=== PATIENT | female | born 1995 | race Two or more races ===

== ENCOUNTER 2024-07-28 20:24 | Observation (INO) | payer MEDICAID, SELFPAY ==
[2024-07-28] VITALS (8 sets, daily range): BP systolic 132; BP diastolic 81; PULSE 71–103; RESP 18–99; TEMP 36.8; O2SAT 98–99; BMI 31.3
--- NOTE | 2024-07-28 21:13 | XR_ITS ---
Examination: Complete OB ultrasound greater than 14 weeks Date and time of exam: July 28, 2024 2130 hours INDICATIONS: Onset of vaginal bleeding and pelvic cramping today Findings: Viable intrauterine single fetus with single amniotic sac presentation cephalic Cardiac motion 153 BPM Placenta posterior grade 3, no abruption Umbilical cord insertion 3 vessel seen Amniotic fluid index 11.1 cm spine maternal left Cervix 3.4 cm Ovaries obscured by bowel gas. Composite estimated gestational age based on BPD, head circumference, abdominal circumference, femur length is 36 weeks 3 days, estimated weight 2780 g. Survey of intracranial anatomy, spinal anatomy, abdominal anatomy, four-chamber heart performed with no abnormalities identified. Impression: Viable intrauterine gestation in cephalic presentation.
== END 2024-07-28 23:35 | disposition home or self-care (01) ==
PROVIDERS: Admitting Provider Obstetrics & Gynecology; Visit Provider Obstetrics & Gynecology
DX: O46.93 Antepartum hemorrhage, unspecified, third trimester (principal); Z3A.36 36 weeks gestation of pregnancy
CPT/HCPCS: 59025; 59899; 76805

== ENCOUNTER 2024-07-31 18:31 | Inpatient (IN) | payer MEDICAID, SELFPAY ==
[2024-07-31] VITALS (10 sets, daily range): BP systolic 124–145; BP diastolic 61–90; PULSE 67–79; RESP 18–100; TEMP 36.8–37.3; BMI 31.4
[2024-07-31 19:13] LABS: ROM Kit Lot # 57809118
[2024-07-31 19:14] LABS: ROM Swab Mixed By: AYNJ; Rupture of Fetal Membranes Positive (Negative); Swb Mxed in Solvent 1 min? Yes
--- NOTE | 2024-07-31 19:53 | ESHP_ITS ---
Documentation for date of: 07/31/24 OB Labor/Induct. HPI History of Present Illness Chief complaint: ctx and leaking : 1 Para: 0 Date of last menstrual period: 10/15/23 MOLLY: 08/14/24 Gestational Age (weeks): 38 Gestational Age (days): 0 Gestational age based on last menstrual period: 41 History of present illness: Patient presents with regular/painful ctx and possible leakage of clear fluid that started this evening around 1730. No vaginal bleeding. Feels normal movement. History of Present Dating criteria: based on 1st trimester US only Adequate Care: Yes Ultrasounds: normal 1st trimester US and normal mid trimester US Narrative: G1: current Complications: rubella non-immune, anemia in 3rd trimester started on iron (Hgb 10.2) Labs Labs: Negative: RPR, Hepatitis B, Rubella Titre, HIV, Chlamydia, Gonorrhea and Group Beta Strep Review of Systems Review of Systems Narrative Review of Systems: Review of Systems Systems Reviewed: All systems reviewed, normal except as documented Constitutional Constitutional: Denies body ache(s), Denies chills, Denies fever(s) and Denies headache(s) ENT Ears, Nose, Mouth, and Throat: Denies headache(s) and Denies vertigo Cardiovascular Cardiovascular: Denies chest pain, Denies palpitations, Denies dyspnea and Denies syncope Respiratory Respiratory: Denies cough, Denies dyspnea Gastrointestinal Gastrointestinal: Denies nausea and Denies vomiting Neurologic Neurologic: Denies convulsions, Denies headache(s), Denies other visual disturbances, Denies syncope and Denies vertigo Past Medical History Surgical History OTHER SURGICAL HX: denies Social History SOCIAL: No tobacco/ETOH/illicit drug use Past Medical History Comments PMH COMMENT: Benign PMhx Meds Home Medications and Allergies Home Medications ?Medication ?Instructions ?Recorded ?Confirmed ?Type No Known Home Medications 07/28/24 02/0 07/24 History Allergies Allergy/AdvReac Type Severity Reaction Status Date / Time No Known Allergies Allergy Verified 07/31/24 19:12 OB Exam Physical Exam Vital signs: Temp Pulse Resp BP 98.3 F 79 18 142/90 H 07/31/24 19:16 07/31/24 19:28 07/31/24 19:16 07/31/24 19:28 Narrative: General: well developed, well nourished, no acute distress, conversant Cardiac: normal heart rate Lungs: breathing without distress Abdomen: soft, gravid, non-tender, no rebound or guarding Extremities: no pain with palpation of calves RN reports on SCE there is some pooling of clear fluid. Detailed Labor and Delivery Exam Dilation (cm): 4 Effacement (%): 50 Cervix position: mid station: -2 Consistency: medium Presentation: Vertex Membranes: ruptured Amniotic fluid: clear monitor accelerations: 15x15 monitor decelerations: None termite renewal inspector variability: Moderate (11-25) Contraction frequency (min): q8-10min OB Results Labs 07/31/24 19:45 Labs: Amnisure: positive OB Assessment & Plan Assessment and Plan (1) Active labor at term: Status: Acute Assessment and plan: Ade is a 28yo with SIUP at 38+0wk presenting in active labor with SROM. Regular/painful contractions q8-10min, SCE: 4/50/-2. AROM, clear this evening (1730?) with +amnisure. Vitals wnl, benign exam. Reassuring assessment. EFW by Geo'iris: 7lb. PMhx/ complicated by: Rubella non-immune Anemia, Hgb 10.2 started on iron Plan: -Admit to L&D -Establish IV, routine labs -CEFM -Clear liquid diet -Sr. Payroll Manager/consent re: augmentation and . Discussed if no cervical change after 2 hours, will initiate IV pitocin and titrate per protocol- patient amenable. Answered all questions. -GBS status: negative -Anticipate -Safe to proceed (2) SROM (spontaneous rupture of membranes): Status: Acute (3) Rubella non-immune status, antepartum: Status: Acute (4) Anemia affecting : Status: Acute (4) Anemia affecting Qualifiers: Trimester: third trimester Qualified Code(s): O99.013 - Anemia complicating , third trimester
[2024-07-31] MEDS: RINGERS LACTATED 1000 ML 1,000 ML 100 ML IV (20:00)
[2024-07-31 20:07] LABS: Basophils % (Auto) 0 % (0-2.5); Eosinophils # (Auto) 0.1 Thou/mm3 (0.0-0.5); Eosinophils % (Auto) 1 % (0-10); Hematocrit 23.6 % (36.0-46.0); Immature Granulocytes % (Auto) 1 % (0-0); Immature Granulocytes Auto 0.09 Thou/mm3 (0.00-0.00); Lymphocytes # (Auto) 2.1 Thou/mm3 (1.0-4.8); Lymphocytes % (Auto) 18 % (10-50); Mean Corpuscular HGB Conc 32.2 g/dl (31.0-37.0); Mean Corpuscular Hemoglobin 25.7 pg (25.0-35.0); Mean Corpuscular Volume 80 fL (80-100); Monocytes # (Auto) 0.7 Thou/mm3 (0.0-0.8); Monocytes % (Auto) 6 % (0-12); Neutrophils # (Auto) 8.8 Thou/mm3 (1.8-7.7); Neutrophils % (Auto) 75 % (37-80); Nucleated Red Blood Cell # 0.04 Thou/mm3 (0.00-0.00); Nucleated Red Blood Cell % 0 /100 WBC (0); Platelet Count 189 Thou/mm3 (140-440); RDW Standard Deviation 45.5 fL (36.4-46.3); Red Blood Count 2.96 Miln/mm3 (4.00-5.20); White Blood Count 11.8 Thou/mm3 (3.6-11.0)
[2024-07-31 20:29] LABS: Hemoglobin 7.6 g/dL (12.0-16.0)
[2024-07-31 21:08] LABS: Syphilis Nonreactive (Nonreactive)
[2024-08-01] VITALS (212 sets, daily range): BP systolic 118–158; BP diastolic 60–89; PULSE 60–145; RESP 16–19; TEMP 36.6–37.3; O2SAT 92–100
[2024-08-01] MEDS: RINGERS LACTATED 1000 ML 1,000 ML 100 ML IV ×3 (07:18→14:47)
--- NOTE | 2024-08-01 09:18 | PD.LDPN ---
Documentation for date of: 08/01/24 OB Labor Progress Note Pelvic Exam Dilation (cm): 4 Effacement (%): 50 station: -2 Contractions Contraction frequency: q8-10min Assessment and Plan Comments: Intrapartum Note Patient breathing through ctx, rates them 10/10 but does not want an epidural. Last check approx 0230: 6/80/-2. Vitals wnl, afebrile Cat I FHRT Ctx q5min SCE: 6/80/-2. AROM of forebag, moderate amount of blood tinged fluid, well tolerated. Plan to re-check in 1 hour and if no cervical change, will start IV pitocin and titrate per protocol Discussed importance of progress in labor at this point since she had SROM last night at 1730 and we want to avoid developing chorioamnionitis. She voiced her understanding. CEFM She has been typed and crossed 2 units pRBCs since Hgb on admission is 7.6. Low threshold for blood transfusion with delivery if any excess bleeding occurs. Safe to proceed Maria Elena Dixon MD
[2024-08-01] MEDS: fentaNYL CIT INJ 50 mCg/ML AMP 2ML 100 MCG IV (11:22)
[2024-08-01] MEDS: METHYLERGONOVINE INJ 0.2 MG/ML VIAL IM (16:02)
[2024-08-01] MEDS: TRANEXAMIC ACID 1,000 MG IVPB 1,000 MG/100 ML BAG 200 MG IV (16:02)
[2024-08-01] MEDS: OXYTOCIN in NS 20 units 20 UNIT/1,000 ML BAG 125 UNIT IV (16:04)
[2024-08-01] MEDS: LIDOCAINE HCL 1% 20 ML VIAL INFL (16:10)
[2024-08-01] MEDS: CARBOPROST TROMETH INJ 250 MCG/ML VIAL IM (16:11)
[2024-08-01] MEDS: IBUPROFEN TAB 400 MG TABLET 800 MG PO (16:19)
[2024-08-01] MEDS: DIPHENOXYLATE/ATROP SULF 1 TAB PO (16:21)
[2024-08-01] MEDS: MISOPROSTOL 200 mCg TABLET 800 MCG PR (16:25)
[2024-08-01] MEDS: BENZO/LANO/ALOE (Dermoplast) 60 GM CAN 1 SPRAY TOP (16:35)
--- NOTE | 2024-08-01 16:37 | OBDSUM_ITS ---
Data (Heard) Data : 1 Para: 0 Term: 0 : 0 : 0 Delivery Data (Heard) Labor Data ROM Date: 07/31/24 ROM Time: 17:30 Rupture Type: SROM Amniotic Fluid: Clear Delivery Data Labor Onset Stage 1 Date: 07/31/24 Labor Onset Stage 1 Time: 17:00 Labor Onset Stage 2 Date: 08/01/24 Labor Onset Stage 2 Time: 15:40 Delivery Date: 08/01/24 Delivery Time: 15:57 Placenta Delivery Date: 08/01/24 Placenta Delivery Time: 16:03 Delivered by: Maria Elena Dixon Delivery nurse: Estela Amor Other staff at delivery: 2nd Nurse Other staff at delivery: Nursery Nurse Other staff at delivery: 2nd Nurse Other staff at delivery: Tabitha Gray Other staff at delivery: Susanna Torres Other staff at delivery: Media1 Delivery Method Delivery: Vaginal Delivery Type: Spontaneous Anesthesia Type Primary Anesthesia: Epidural Placenta Cord Sample: Cord Blood Obtained EBL Estimated blood loss (ml): 1,000 Additional Procedures Ade is a 28yo s/p at 38+1wk after presenting in active labor/with SROM, delivering at 1557 on 08/01/2024. Delivery complicated by hemorrhage that began prior to placenta being delivered. On presentation, SCE was 4cm. She progressed without pitocin augmentation (declined pitocin on multiple occasions despite counseling) to C/C/0 at which point she began pushing. She had received an epidural. With good maternal pushing efforts, infant's head delivered OA and restituted EARLE. Right anterior shoulder delivered easily followed by posterior shoulder (left compound hand present) and corpus. Infant had spontaneous cry and was vigorous. Apgars 9/9. placed on maternal abdomen where nose/mouth were suctioned and dried/stimulated. Patient began bleeding briskly, so cord was immediately clamped x2 and cut by FOB. Cord blood collected for typing. With fundal massage and cord traction, placenta did not deliver spontaneously initially, so manual extraction was performed, getting a good plane immediately so then placenta could be removed intact with 3 vessel centrally inserted cord, but there were trailing membranes. One sweep within uterus was performed and removed the small remaining fragment of membranes and there were no other POCs. I asked for TXA 1g IV to be given while I performed vigorous bimanual massage. IV pitocin was initiated per protocol and I asked that methergine 0.2mg IM be given since patient continued to have brisk bleeding with slow resolution of atony. I asked then for 0.25mg IM hemabate to be given and also cytotec 800mcg to be brought to the table to administer later NH. I also asked for 2u of pRBCs to be called for since patient's starting Hgb was 7.6. With all of these measures and continued bimanual massage, fundus firmed to u- 2cm and hemostasis was finally noted. Inspection of perineum and vagina revealed left labial lacerations and small right sidewall laceration which were repaired with 3-0 and 4-0 vicryl in routine fashion after anesthetizing with 1% lidocaine with total reapproximation and hemostasis achieved. Fundus was noted to remain firm. I placed the 800mcg cytotec NH. We measured the blood loss and it was 870ml + a saturated towel and several 4x4s, so total EBL is 1000ml. All counts correct x2. Mom and infant were doing well when I left the room. Maternal pulse 110's, improved from 140's during active management of hemorrhage. She remained normotensive. Patient was counseled on the rationale for blood transfusion, r/b/a, and is accepting of blood products. I asked for CBC to be drawn now and 6hr after the transfusion of 2u pRBCs is completed. Maria Elena Dixon MD Complications Complications: hemorrhage [place] Data (Heard) [place] Data Gender: Male Weight Grams: 3210 1 Minute Total: 9 5 Minute Total: 9
[2024-08-01] MEDS: ONDANSETRON INJ 2 MG/ML INJ 2 ML 4 MG (16:56)
[2024-08-01 16:59] LABS: Basophils # (Auto) 0.1 Thou/mm3 (0.0-0.2); Basophils % (Auto) 0 % (0-2.5); Eosinophils % (Auto) 0 % (0-10); Hematocrit 25.1 % (36.0-46.0); Immature Granulocytes % (Auto) 1 % (0-0); Immature Granulocytes Auto 0.19 Thou/mm3 (0.00-0.00); Lymphocytes # (Auto) 1.4 Thou/mm3 (1.0-4.8); Lymphocytes % (Auto) 8 % (10-50); Mean Corpuscular HGB Conc 31.9 g/dl (31.0-37.0); Mean Corpuscular Hemoglobin 25.6 pg (25.0-35.0); Mean Corpuscular Volume 80 fL (80-100); Monocytes # (Auto) 0.8 Thou/mm3 (0.0-0.8); Monocytes % (Auto) 5 % (0-12); Neutrophils # (Auto) 14.3 Thou/mm3 (1.8-7.7); Neutrophils % (Auto) 85 % (37-80); Nucleated Red Blood Cell # 0.03 Thou/mm3 (0.00-0.00); Nucleated Red Blood Cell % 0 /100 WBC (0); Platelet Count 199 Thou/mm3 (140-440); RDW Standard Deviation 46.5 fL (36.4-46.3); Red Blood Count 3.13 Miln/mm3 (4.00-5.20); White Blood Count 16.8 Thou/mm3 (3.6-11.0)
[2024-08-02 02:27] LABS: Basophils % (Auto) 0 % (0-2.5); Eosinophils % (Auto) 0 % (0-10); Immature Granulocytes % (Auto) 1 % (0-0); Immature Granulocytes Auto 0.13 Thou/mm3 (0.00-0.00); Lymphocytes # (Auto) 2.1 Thou/mm3 (1.0-4.8); Lymphocytes % (Auto) 15 % (10-50); Mean Corpuscular HGB Conc 32.9 g/dl (31.0-37.0); Mean Corpuscular Hemoglobin 26.1 pg (25.0-35.0); Mean Corpuscular Volume 79 fL (80-100); Monocytes # (Auto) 1.2 Thou/mm3 (0.0-0.8); Monocytes % (Auto) 8 % (0-12); Neutrophils # (Auto) 11.2 Thou/mm3 (1.8-7.7); Neutrophils % (Auto) 76 % (37-80); Nucleated Red Blood Cell # 0.07 Thou/mm3 (0.00-0.00); Nucleated Red Blood Cell % 1 /100 WBC (0); Platelet Count 185 Thou/mm3 (140-440); RDW Standard Deviation 44.6 fL (36.4-46.3); Red Blood Count 3.03 Miln/mm3 (4.00-5.20); White Blood Count 14.7 Thou/mm3 (3.6-11.0)
[2024-08-02 02:38] LABS: Hemoglobin 7.9 g/dL (12.0-16.0)
[2024-08-02 04:47] VITALS: BP 136/83; PULSE 68; RESP 18; TEMP 36.6; O2SAT 97
--- NOTE | 2024-08-02 05:38 | PC.NURSE ---
0525 Educated and demonstrated the use of breast pump, pumping intervals, pumping times, and storage. Pt stated understanding on use of breast pump and RN helped pt to began use breast pump.
[2024-08-02 08:00] VITALS: BP 132/79; PULSE 70; RESP 16; TEMP 36.9; O2SAT 97
--- NOTE | 2024-08-02 08:59 | ESDS_ITS ---
DS: Providers Provider Date of admission: 07/31/24 19:50 Primary care physician: Physician No Primary/Family Admitting Provider: Maria Elena Dixon MD Attending Provider on Admission: Maria Elena Dixon MD Consults: 08/01/24 16:34 Referral Routine Comment: Attending Provider on DC: Maria Elena Dixon MD Discharging Provider: Maria Elena Dixon MD DS: Diagnosis Discharge Diagnosis (1) Active labor at term: Status: Acute (2) SROM (spontaneous rupture of membranes): Status: Acute (3) Rubella non-immune status, antepartum: Status: Acute (4) Anemia affecting : Status: Acute (5) hemorrhage: Status: Acute (6) Blood transfusion during current hospitalisation: Status: Acute Problem List Completed Was Problem List Reviewed/Reconciled?: Yes Summary/Hosp Course Brief History: Ade is a 28yo s/p at 38+1wk after presenting in active labor/with SROM, delivering at 1557 on 08/01/2024. Delivery complicated by hemorrhage that began prior to placenta being delivered. Hemorrhage was effectively treated treated with multiple uterotonics (pitocin, hemabate, methergine, cytotec) and TXA and blood transfusion was immediately given since admission Hgb was 7.6. She tolerated blood transfusion well and post-transfusion Hgb this morning is 7.9. No tachycardia, no lightheadedness/dizziness with ambulation. She is meeting all milestones and feels ready for discharge home. She is tolerating regular diet no n/v, spontaneously voiding without issue. She has no chest pain or shortness of breath. No fevers or chills. Minimal, appropriate discomfort. Vitals normal, benign exam. Hemodynamically stable with no evidence of infection. I have ordered an iron infusion for her to be given prior to discharge, but she is not sure if she will accept and will consider further. Oral iron prescribed to pharmacy to continue twice daily. Status at Discharge Functional status at discharge: independent ambulation Overall status at discharge: patient is back to baseline Time Spent with Patient Time attestation: Total time spent providing and/or coordinating discharge services: Exam Vital Signs Temp Pulse Resp BP Pulse Ox O2 Del Method 98.5 F 70 16 132/79 H 97 Room Air 08/02/24 08:00 02/03/25 08:00 08/02/24 08:00 08/02/24 08:00 08/02/24 08:00 08/02/24 08:00 Narrative Exam General: well developed, well nourished, no acute distress, conversant Cardiac: normal heart rate Lungs: breathing without distress Abdomen: soft, post-gravid, non-tender, no rebound or guarding, Fundus firm at u-3cm. Extremities: no pain with palpation of calves, trace edema of BLE Discharge Plan Plan Patient Disposition: HOME (Self Care) Patient condition on transfer: Stable Prescriptions/Referrals Prescriptions/Med Rec: New ibuprofen 800 mg tablet 800 mg PO Q8H PRN (Reason: See Comments) 10 Days Qty: 30 0RF ferrous sulfate 325 mg (65 mg iron) tablet 325 mg PO BID 60 Days Qty: 120 0RF docusate sodium [Colace] 100 mg capsule 100 mg PO BID Qty: 90 0RF Referrals: No Primary/Family,Physician [Primary Care Provider] - Patient/Caregiver Discharge Instructions Discharge Activity: activity as tolerated and other Other Discharge Activity Instructions:: Vaginal rest and no heavy lifting greater than 10 pounds for 6 weeks. Eat an iron-rich diet and take oral iron twice daily. Other Discharge Diet Instructions: Regular diet Education Materials: After a Vaginal Print Language: Vietnamese Activity Restrictions/Additional Instructions: Follow up for visit in 4 weeks, call clinic for appointment Stand Alone Forms: Sabina Award Info., Patient Portal Info Letter Discharge Order Discharge Orders: Discharge (Routine); Ordered 08/02/24 Ordered By: Maria Elena Dixon Planned Discharge Date 08/02/24 (4) Anemia affecting Qualifiers: Trimester: third trimester Qualified Code(s): O99.013 - Anemia complicating , third trimester (5) hemorrhage Qualifiers: hemorrhage type: other immediate Qualified Code(s): O72.1 - Other immediate hemorrhage
[2024-08-02 09:30] LABS: Basophils # (Auto) 0.1 Thou/mm3 (0.0-0.2); Basophils % (Auto) 0 % (0-2.5); Eosinophils % (Auto) 0 % (0-10); Hematocrit 26.9 % (36.0-46.0); Immature Granulocytes % (Auto) 1 % (0-0); Lymphocytes # (Auto) 2.7 Thou/mm3 (1.0-4.8); Lymphocytes % (Auto) 18 % (10-50); Mean Corpuscular Volume 81 fL (80-100); Monocytes # (Auto) 0.9 Thou/mm3 (0.0-0.8); Monocytes % (Auto) 6 % (0-12); Neutrophils # (Auto) 11.4 Thou/mm3 (1.8-7.7); Neutrophils % (Auto) 75 % (37-80); Nucleated Red Blood Cell % 0 /100 WBC (0)
[2024-08-02 09:31] LABS: Immature Granulocytes Auto 0.11 Thou/mm3 (0.00-0.00); Mean Corpuscular Hemoglobin 25.7 pg (25.0-35.0); Nucleated Red Blood Cell # 0.06 Thou/mm3 (0.00-0.00); Platelet Count 165 Thou/mm3 (140-440); RDW Standard Deviation 44.6 fL (36.4-46.3); Red Blood Count 3.34 Miln/mm3 (4.00-5.20); White Blood Count 15.1 Thou/mm3 (3.6-11.0)
[2024-08-02 09:33] LABS: Hemoglobin 8.6 g/dL (12.0-16.0)
[2024-08-02 11:26] VITALS: BP 127/77; PULSE 75; RESP 18; TEMP 37.1; O2SAT 97
== END 2024-08-02 15:10 | disposition home or self-care (01) | DRG 560 ==
LOC: S4SX 08-01 16:13 → S4NX 08-01 21:11
PROVIDERS: Admitting Provider Obstetrics & Gynecology; Visit Provider Obstetrics & Gynecology
DX: O99.02 Anemia complicating childbirth (principal); Z3A.38 38 weeks gestation of pregnancy; Z37.0 Single live birth; Z78.9 Other specified health status; O70.0 First degree perineal laceration during delivery; O72.1 Other immediate postpartum hemorrhage
CPT/HCPCS: 36415; 59409; 84112; 85025; 86780; 86850; 86900; 86901; 86923; 94762; J2210; J2405; J2590; J2795; J2916; J3010; J3490; J7050; J7120; P9016; S0191; A9270